=== PATIENT | male | born 1990 ===

== ENCOUNTER 2019-03-29 02:55 | Emergency (ER) | payer SELFPAY ==
[2019-03-29 03:19] VITALS: TEMP 97.6
--- NOTE | 2019-03-29 03:39 | C.PDOC ---
History Of Present Illness 28 year old male ambulated into the ER on his own unclear as to why. When questioned as to why he came he then questioned me as to why I am asking questions. Patient refuses to answer any questions. Time Seen by Provider: 03/29/19 03:20 Chief Complaint (Nursing): Substance Abuse History Per: Patient History/Exam Limitations: other (Refusing to answer) Past Medical History Reviewed: Historical Data, Nursing Documentation, Vital Signs Vital Signs: Last Vital Signs Temp 97.6 F 03/29/19 03:09 Pulse 100 H 03/29/19 03:09 Resp 22 03/29/19 03:09 BP 138/85 03/29/19 03:09 Pulse Ox 95 03/29/19 03:09 Primary Care Provider: FAMILY PROVIDER,NO Family History: States: Unknown Family Hx - Social History Hx Alcohol Use: Yes Hx Substance Use: No - Immunization History Hx Tetanus Toxoid Vaccination: No Hx Influenza Vaccination: No Hx Pneumococcal Vaccination: No Review Of Systems Review Of Systems: ROS cannot be obtained secondary to pt's inabilty to answer questions. (Refuses to answer questions) Physical Exam - Physical Exam Appears: Well, Non-toxic, No Acute Distress, Other (No obvious signs of trauma) Skin: Normal Color Head: Atraumatic, Normacephalic Respiratory: Other (Normal respirations) Extremity: Other (Moves all extremities) Neurological/Psych: Oriented x3, Other (Awake, alert, responding to questions) Gait: Steady ED Course And Treatment O2 Sat by Pulse Oximetry: 95 (Room air) Pulse Ox Interpretation: Normal Medical Decision Making Medical Decision Making: At this time patient is well appearing, observed walking around the ER with steady gait, responding to questions, patient is clinically sober well enough that he does not need observation in the hospital. Disposition Counseled Patient/Family Regarding: Diagnosis, Need For Followup - Disposition Disposition: HOME/ ROUTINE Disposition Time: 03:38 Condition: STABLE Instructions: Alcohol Abuse and Alcoholism (DC) Forms: Gen Discharge Inst Slovak, [employer] [facility] (Slovak) Print Language: [place]DE[place] - Clinical Impression Clinical Impression: Alcohol intoxication - PA / GYPSUM CALCINER / Resident Statement MD/DO has reviewed & agrees with the documentation as recorded. - Scribe Statement The provider has reviewed the documentation as recorded by the Scribaleida Gutierrez All medical record entries made by the Scribe were at my direction and personally dictated by me. I have reviewed the chart and agree that the record accurately reflects my personal performance of the history, physical exam, medical decision making, and the department course for this patient. I have also personally directed, reviewed, and agree with the discharge instructions and disposition.
[2019-03-29 07:23] VITALS: BP 128/72; PULSE 88; RESP 20; O2SAT 97
== END 2019-03-29 04:30 | disposition home or self-care (01) ==
LOC: C.ER 02:55
DX: F10.129 Alcohol abuse with intoxication, unspecified (principal); Y90.9 Presence of alcohol in blood, level not specified